=== PATIENT | male | born 1975 | race Hispanic/Latino ===

== ENCOUNTER 2025-09-15 23:04 | Emergency (ER) | payer BC ==
[~2025-09-15] VITALS: Ht 154.9 cm; Wt 105.2 kg
[2025-09-15 23:11] VITALS: TEMP 98.1
[2025-09-15] MEDS: 0.9%NACL 1000ML 1,000 ML IV ONE (23:35)
[2025-09-15 23:45] LABS: IMMATURE GRANULOCYTE ABSOLUTE 0.02 K/uL (0-1); NUCLEATED RED BLOOD CELLS 0.0 % (0.0-0.19); PLATELET COUNT (AUTO) 291 K/uL (130-400); RED BLOOD CELL COUNT(AUTO) 5.17 MIL/uL (4.50-6.20); RED CELL DISTRIBUTION WIDTH 13.2 % (11.0-15.5); WHITE BLOOD COUNT (AUTO) 8.9 K/uL (4.8-10.8)
[2025-09-15 23:53] LABS: CREATININE 1.1 mg/dL (0.5-1.3); GLOMERULAR FILTR. RATE CALC 81.0 mL/min (>90); GLUCOSE,RANDOM 82.0 mg/dL (70-105); SODIUM SERUM 141.0 mmol/L (136-145); UREA NITROGEN, BLOOD 21.0 mg/dL (7-18)
[2025-09-15 23:58] LABS: CREATINE KINASE, TOTAL 205.0 U/L (21-232)
--- NOTE | 2025-09-16 00:03 | ERN ---
ED Note History of Present Illness Stated Complaint: C/O DIZZINESS,SOB,BLURRY VISION Chief Complaint: Dizzy/Light Headed Time Seen by MD: 23:20 Dictation: 50-year-old male presents to ER complaints of dizziness, low blood pressure, shortness of breath, blurred vision, fatigue for about 4 days. Denies fever or chest pain. Allergies: Coded Allergies: Penicillins (Unverified Allergy, Unknown, 09/15/25) Past Medical History Past Medical History: Diabetes-Type II, High Cholesterol, Hypertension Surgical History: None Review of System Dictation CONSTITUTIONAL: NEGATIVE FOR FEVER,CHILLS, AND WEIGHT LOSS. Positive fatigue EYES: NEGATIVE FOR INJURY, PAIN,REDNESS, AND DISCHARGE ENT: NEGATIVE FOR INJURY,PAIN OR SWELLING CARDIOVASCULAR: NEGATIVE FOR CHEST PAIN, PALPITATIONS, AND EDEMA RESPIRATORY: NEGATIVE FOR COUGH, WHEEZING, AND PLEURITIC CHEST PAIN. Positive shortness of breath ABDOMEN/GI: NEGATIVE FOR ABDOMINAL PAIN, NAUSEA, VOMITING AND DIARRHEA. BACK: NEGATIVE FOR PAIN OR INJURY : NEGATIVE FOR INJURY, BLEEDING AND DISCHARGE MS/EXTREMITY: NEGATIVE FOR INJURY AND DEFORMITY SKIN: NEGATIVE FOR RASH, AND DISCOLORATION NEURO: NEGATIVE FOR NUMBNESS, TINGLING, AND SEIZURE. Positive blurred vision and dizziness PSYCH: NEGATIVE FOR SUICIDE IDEATION, HOMICIDAL IDEATION, AND HALLUCINATIONS ALLERGY/IMMUNOLOGY: NEGATIVE FOR HIVES, RASH, AND ALLERGIES ALL SYSTEMS NEGATIVE, EXCEPT NOTED ABOVE. 13 POINT REVIEW OF SYSTEMS ASSESSED AND ALL NEGATIVE EXCEPT FOR ABOVE. Initial Vital Sign VS Vital Signs Date Time Temp Pulse Resp B/P (MAP) Pulse Ox O2 Delivery O2 Flow Rate FiO2 09/15/25 23:11 98.1 92 20 112/62 97 Room Air 09/15/25 23:42 0 21 Physical Exam Dictation General: awake, alert, NAD Head/Face: Normocephalic, atraumatic Eyes: PERRL, EOMI, vision at baseline ENT: oral cavity clear, TMs clear, no signs of infection Neck: Trachea midline, supple, no nuchal rigidity Cardiovascular: RRR, normal no JVD Respiratory: CTAB, no respiratory distress, No rales or wheezes Abdomen: Soft, non-tender, non-distended, normal bowel sounds, no guarding or rebound. Skin: Warm, dry, normal turgor, no rash MS/Extremity: Pulses equal, no cyanosis, neurovascular intact, FROM Neuro: COAx4, GCS 15, strength 5/5, CN 2-12 intact, normal cerebellar exam, normal gait, Psych: Normal behavior, mood, and affect normal Results (Laboratory/Radiology) Laboratory/Radiology Laboratory Tests Test 09/15/25 23:35 White Blood Count 8.9 K/uL (4.8-10.8) Red Blood Count 5.17 MIL/uL (4.50-6.20) Hemoglobin 14.8 g/dL (14.0-18.0) Hematocrit 43.2 % (42-54) Mean Corpuscular Volume 83.6 fL (79-99) Mean Corpuscular Hemoglobin 28.6 pg (27.0-33.0) Mean Corpuscular Hemoglobin Concent 34.3 g/dL (32.0-36.0) Red Cell Distribution Width 13.2 % (11.0-15.5) Platelet Count 291 K/uL (130-400) Mean Platelet Volume 9.1 fL (7.5-10.5) Immature Granulocyte % (Auto) 0.2 % (0-1) Neutrophils (%) (Auto) 76.1 % (40.0-77.0) Lymphocytes (%) (Auto) 12.9 % (21.0-51.0) L Monocytes (%) (Auto) 8.4 % (3.0-13.0) Eosinophils (%) (Auto) 2.1 % (0.0-8.0) Basophils (%) (Auto) 0.3 % (0.0-5.0) Neutrophils # (Auto) 6.8 K/uL (1.8-7.7) Lymphocytes # (Auto) 1.2 K/uL (1.0-4.8) Monocytes # (Auto) 0.8 K/uL (0.1-1.0) Eosinophils # (Auto) 0.19 K/uL (0.00-0.70) Basophils # (Auto) 0.03 K/uL (0.00-0.20) Absolute Immature Granulocyte (auto 0.02 K/uL (0-1) Nucleated Red Blood Cells 0.0 % (0.0-0.19) Sodium Level 141 mmol/L (136-145) Potassium Level 3.5 mmol/L (3.5-5.1) Chloride Level 102 mmol/L (101-111) Carbon Dioxide Level 28 mmol/L (21-32) Blood Urea Nitrogen 21 mg/dL (7-18) H Creatinine 1.1 mg/dL (0.5-1.3) Glomerular Filtration Rate Calc 81 mL/min (>90) Random Glucose 82 mg/dL (70-105) Total Calcium 8.6 mg/dL (8.5-10.1) Total Creatine Kinase 205 U/L (21-232) Troponin I High Sensitivity < 4 ng/L (4-75) L X-RAY Comment: PATIENT: JOCELYNE DOTY MR#: [id number] : 1975 SEX: M AGE: 50 LOCATION: [facility] ORDER 20 STATUS: REG REPORT#: [id number] SERVICE 19 REASON: dizziness ORDERING PHYSICIAN: LOUISE BYRD PROCEDURE: CXR1VW - CHEST 1VW EXAM: CR Chest, 1 View. CLINICAL HISTORY: Dizziness. COMPARISON: None provided. FINDINGS: LUNGS: There is no mass, infiltrate, or acute pulmonary abnormality. PLEURAL SPACES: No evidence of pleural effusion or pneumothorax. MEDIASTINUM: The cardiomediastinal silhouette is within normal limits. BONES: No acute osseous abnormality. IMPRESSION: No acute cardiopulmonary pathology is evident. /[place] ED Course ED Course Orders Procedure Category Date Status Time Cbc With Differential LAB 09/15/25 Complete 23:20 Chest 1vw RAD 09/15/25 Resulted 23:20 12 Lead Ekg Tracing- EKG 09/15/25 Logged Technical 23:20 0.9%Nacl 1000ml (Ns PHA 09/15/25 Complete 1000ml) 23:30 Creatine Kinase, Total LAB 09/15/25 Complete 23:20 Troponin I High LAB 09/15/25 Complete Sensitivity 23:20 Urinalysis Profile LAB 09/15/25 Logged 23:20 Basic Metabolic Panel LAB 09/15/25 Complete 23:20 Ct Head/Brain W/O CT 09/15/25 Taken Contrast 23:51 Current Medications Medications (Trade) Dose Ordered Sig/Apple Route PRN Reason Start Time Stop Time Status Last Admin Dose Admin Diltiazem HCl (CARDIzem 25MG INJ) 5 mg STAT ONCE IVP 09/16/25 00:00 09/16/25 00:01 Cancel Sodium Chloride 1,000 ml @ 0 mls/hr ONCE ONCE IV 09/15/25 23:30 09/15/25 23:31 DC 09/15/25 23:35 Vital Signs Date Time Temp Pulse Resp B/P (MAP) Pulse Ox O2 Delivery O2 Flow Rate FiO2 09/16/25 00:50 94 18 123/75 96 Room Air* 0 21 09/15/25 23:42 86 18 121/70 97 Room Air* 0 21 09/15/25 23:11 98.1 92 20 112/62 97 Room Air Medical Decision Making MDM MDM: Differential diagnosis: Dizziness, hypotension, sepsis, pneumonia Rationale: Tests considered and ordered secondary to shared decision making include: labs, ECG and radiology Previous outside records reviewed: Old ER visits. Risk of complication and/or morbidity or mortality of patient management: None Medications-Per medication reconciliation Need for hospitalization: Patient does NOT meet criteria for hospitalization. Need for emergency major/minor surgery: No There are no social concerns with this patient. Prescription drug management Prescriptions will include symptomatic care Patient's prior external medical records from other ER visits were reviewed by me as indicated. Prior testing and results from previous visits were reviewed. Prior tests were taken into account with medical decision making and resource utilization, independent historian/historians were used to obtain complete medical history. I independently interpreted the test that were performed, results were reviewed by me and considered findings on radiology if ordered. Patient lab results normal. Patient now states he started feeling this dizziness when his dosage of Rybelsus was increased. Patient advised this is most likely a side effect to the medication increased. To follow up with PCP to revise his medications. DX & DISP Disposition: Discharge Departure Impression: Primary Impression: Dizziness Additional Impression: Medication adverse effect Condition: Stable Additional Instructions: All your lab results are normal today. Follow up with your primary doctor to review your medications. FOLLOW-UP WITH YOUR PCP IN 24-72 HOURS AND IN THE EVENT IF SYMPTOMS WORSEN OR AN EMERGENCY OVERNIGHT REPORT TO THE ED IMMEDIATELY Referrals: PAT RICO MD (PCP) LOUISE BYRD Sep 16, 2025 00:03
[2025-09-16 00:50] VITALS: BP 123/75; PULSE 94; RESP 18; O2SAT 96
--- NOTE | 2025-09-16 00:52 | HMCIMG ---
EXAM: CR Chest, 1 View. CLINICAL HISTORY: Dizziness. COMPARISON: None provided. FINDINGS: LUNGS: There is no mass, infiltrate, or acute pulmonary abnormality. PLEURAL SPACES: No evidence of pleural effusion or pneumothorax. MEDIASTINUM: The cardiomediastinal silhouette is within normal limits. BONES: No acute osseous abnormality. IMPRESSION: No acute cardiopulmonary pathology is evident. /[place]
--- NOTE | 2025-09-16 01:41 | HMCIMG ---
EXAM: Non-contrast CT examination of the Brain. CLINICAL HISTORY: Dizziness and blurred vision. TECHNIQUE: Thin collimated axial CT images of the brain were obtained, with sagittal and coronal reformatted images also submitted. CT scan done according to ALARA (As Low as Reasonably Achievable). CONTRAST USED: None. COMPARISON: None provided. FINDINGS: No acute intracranial abnormality is present. No acute cortical infarction, hemorrhage, mass, or mass effect. No hydrocephalus or abnormal extra-axial fluid collections. The posterior fossa is unremarkable. The skull base and calvarium are intact. The included portions of the paranasal sinuses and mastoid air cells are clear. IMPRESSION: No acute intracranial abnormality is present. /[place]
--- NOTE | 2025-09-16 06:30 | EKG ---
[facility] Test Date: 2025-09-16 Test Time: 01:03:32 Pat Name: JOCELYNE DOTY Department: ED Room: Gender: M Director Nicu: [id number] : 1975 Requested By: LOUISE BYRD Order Number: [id number] Reading MD: Cristobal Albarado Measurements Intervals [place] Rate: 94 P: 32 HI: 163 QRS: 0 QRSD: 101 T: 21 QT: 356 QTc: 446 Interpretive Statements Sinus rhythm No previous ECG available for comparison Electronically Signed On 09-16-2025 16:31:16 CDT by Cristobal Albarado Please click the below link to view image of tracing.
== END 2025-09-16 01:33 | disposition home or self-care (01) ==
LOC: EDH 23:04
DX: R42 Dizziness and giddiness (principal); T38.3X5A Adverse effect of insulin and oral hypoglycemic [antidiabetic] drugs, initial encounter; E11.9 Type 2 diabetes mellitus without complications; E78.00 Pure hypercholesterolemia, unspecified; I10 Essential (primary) hypertension; Z88.0 Allergy status to penicillin; Y92.89 Other specified places as the place of occurrence of the external cause
CPT/HCPCS: 99284; 70450; 71045; 82550; 84484; 80048; 85025; 36415; 93005; J7030